=== PATIENT | male | born 1985 | race Caucasian/White ===

== ENCOUNTER 2021-01-27 12:10 | Emergency (ER) | payer MEDICAID ==
[~2021-01-27] VITALS: Ht 182.9 cm; Wt 79.5 kg
[2021-01-27 12:58] VITALS: BP 145/65
== END 2021-01-27 15:18 | disposition home or self-care (01) ==
LOC: ER 12:11
DX: S93.401A Sprain of unspecified ligament of right ankle, initial encounter (principal); W11.XXXA Fall on and from ladder, initial encounter; Y93.89 Activity, other specified; Y92.89 Other specified places as the place of occurrence of the external cause; Y99.8 Other external cause status
CPT/HCPCS: 73610; 99283